=== PATIENT | male | born 1995 | race Caucasian/White ===

== ENCOUNTER 2017-07-10 09:56 | Emergency (ER) | payer MEDICAID ==
[~2017-07-10] VITALS: Ht 175.3 cm; Wt 78.5 kg
[2017-07-10] MEDS ORDERED: FLUORESCEIN SODIUM 1MG/STRIP OP ONE (11:00)
[2017-07-10] MEDS ORDERED: TETRACAINE 0.5% OPHTH DROPS 4ML OP ONE (11:00)
[2017-07-10 11:33] VITALS: BP 89/58
== END 2017-07-10 11:37 | disposition home or self-care (01) ==
LOC: ER 10:14
DX: S05.01XA Injury of conjunctiva and corneal abrasion without foreign body, right eye, initial encounter (principal); H11.31 Conjunctival hemorrhage, right eye; F12.10 Cannabis abuse, uncomplicated; X58.XXXA Exposure to other specified factors, initial encounter; Y93.89 Activity, other specified; Y92.018 Other place in single-family (private) house as the place of occurrence of the external cause
CPT/HCPCS: 99283; Z7610